=== PATIENT | male | born 2000 | race Hispanic/Latino ===

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

== ENCOUNTER 2018-01-07 09:44 | Emergency (ER) | payer OTHER ==
[~2018-01-07] VITALS: Ht 167.6 cm; Wt 62.6 kg
[~2018-01-07 09:44] MED LIST changes: +CEFDINIR300 MG PO; +MOTRIN800 MG PO; +MUCINEX D ER T1 EACH PO; +PREDNISONE20 MG PO; +VENTOLIN HFA18 GM IH; +ZITHROMAX250 MG PO
[2018-01-07] MEDS ORDERED: ERYTHROMYC1 APPLICAT BOTH EYES (10:43)
[2018-01-07 11:03] VITALS: BP 118/65
== END 2018-01-07 11:04 | disposition home or self-care (01) ==
LOC: EME 09:44
DX: H00.021 Hordeolum internum right upper eyelid (principal)
CPT/HCPCS: 99281; 99284